=== PATIENT | female | born 1970 | race Caucasian/White ===

== ENCOUNTER 2018-10-29 10:07 | Emergency (ER) | payer MEDICAID, OTHER ==
[~2018-10-29] VITALS: Ht 154.9 cm; Wt 58.2 kg
[~2018-10-29 10:07] MED LIST: CAPT12.55 PO; METF-960 PO
[2018-10-29] MEDS ORDERED: MELO-107 PO (10:23)
[2018-10-29] MEDS ORDERED: UNKNOWN INSULIN SQ (10:23)
[2018-10-29] MEDS ORDERED: BACL10TA PO (10:23)
[2018-10-29 10:25] LABS: GLUCOSE,POINT OF CARE 365 MG/DL (70-110)
[2018-10-29] MEDS ORDERED: INSU100I26 SQ (10:52)
[2018-10-29] MEDS ORDERED: SITA100 PO (10:53)
[2018-10-29] MEDS ORDERED: ACETAMINOPHEN 500 MG TABLET PO ONE (11:00)
[2018-10-29 11:42] VITALS: BP 159/92
== END 2018-10-29 11:46 | disposition home or self-care (01) ==
LOC: EMS 10:08
DX: M25.561 Pain in right knee (principal); M19.90 Unspecified osteoarthritis, unspecified site; E11.9 Type 2 diabetes mellitus without complications; I10 Essential (primary) hypertension; Z79.4 Long term (current) use of insulin; Z79.84 Long term (current) use of oral hypoglycemic drugs